=== PATIENT | female | born 1935 | race Caucasian/White ===

== ENCOUNTER → 2016-08-11 | Outpatient (CLI) | payer OTHER | LOC: BHLMT 13:00 | PROVIDERS: ATTEND Internal Medicine Cardiovascular Disease | DX: I48.91 Unspecified atrial fibrillation (principal); I48.92 Unspecified atrial flutter; I10 Essential (primary) hypertension; R07.9 Chest pain, unspecified; I47.1 Supraventricular tachycardia; I49.1 Atrial premature depolarization; R00.2 Palpitations; F41.9 Anxiety disorder, unspecified | CPT/HCPCS: 93005-PO ==

== ENCOUNTER → 2016-08-14 | Outpatient (CLI) | payer OTHER | LOC: FCPNEURO 20:00 | PROVIDERS: ATTEND Psychiatry & Neurology Sleep Medicine | DX: G47.33 Obstructive sleep apnea (adult) (pediatric) (principal); G47.61 Periodic limb movement disorder ==

== ENCOUNTER 2016-10-29 09:36 | Observation (INO) | payer OTHER ==
[2016-10-29] MEDS ORDERED: diphenhydrAMINE 25 MG CAP PO ONE ×2 (09:39→10:18)
[2016-10-29] MEDS ORDERED: BACITRACIN IRRIGATION/NS 50,000 UNITS/1,000 ML BTL IRR ONE (09:39)
[2016-10-29] MEDS ORDERED: ceFAZolin 2 GM/DEXTROSE 100 ML IV ONE (09:39)
[2016-10-29] MEDS ORDERED: DIAZEPAM 5 MG TAB PO ONE (09:39)
[2016-10-29] MEDS ORDERED: NS 1,000 ML IV ONE (09:39)
--- NOTE | 2016-10-29 10:00 | CPEKG ---
Heart Rate: 52 RR Interval: 1154 P-R Interval: 172 QRSD Interval: 84 QT Interval: 484 QTC Interval: 451 P [place]ul[place]: 43 QRS [place]ul[place]: -3 T Wave Yul[place]: 38 EKG Severity - NORMAL ECG - EKG Impression: SINUS RHYTHM Electronically Signed By: Nicolette Hicks 29-Oct-2016 10:07:41
[2016-10-29] MEDS ORDERED: DIAZEPAM 5 MG TAB ONE (10:18)
[2016-10-29 10:19] LABS: ADD DIFF? NO; ADD MORPH? NO; ADD SCAN? NO; ATYPICAL LYMPHOCYTE FLAG 0 (0-99); FRAGMENT RBC FLAG 0 (0-99); HEMATOCRIT 40.2 % (38.0-47.0); HEMOGLOBIN 13.8 g/dL (12.6-16.3); LEFT SHIFT FLG 0 (0-99); LIPEMIA HEMOLYSIS FLAG 90 (0-99); MEAN CELL HEMOGLOBIN 31.3 pg (27.9-34.1); MEAN CELL HEMOGLOBIN CONCENTR. 34.3 g/dL (32.4-36.7); MEAN CELL VOLUME 91.2 fL (81.5-99.8); MEAN PLATELET VOLUME 9.5 fL (8.7-11.7); PLATELET CLUMPS FLAG 20 (0-99); PLATELET COUNT 230 10^3/uL (150-400); RED BLOOD CELL COUNT 4.41 10^6/uL (4.18-5.33); RED CELL DISTRIBUTION WIDTH 12.6 % (11.5-15.2)
[2016-10-29] MEDS ORDERED: VANCOMYCIN HCL/NORMAL SALINE 250 ML IV ONE (10:30)
[2016-10-29 10:32] LABS: ANION GAP 10 mEq/L (8-16); CALCIUM 8.8 mg/dL (8.5-10.4); CARBON DIOXIDE 23 mEq/l (22-31); CHLORIDE 106 mEq/L (97-110); CREATININE 0.9 mg/dL (0.6-1.0); GLOMERULAR FILTRATION RATE > 60; GLUCOSE 100 mg/dL (70-100); POTASSIUM 4.5 mEq/L (3.5-5.2); SODIUM 139 mEq/L (134-144)
[2016-10-29 10:35] LABS: INR 0.92 (0.83-1.16); PROTIME(PATIENT) 12.3 SEC (12.0-15.0)
[2016-10-29] MEDS ORDERED: IOPAMIDOL (ISOVUE-370) 150 ML BTL IV ONE (13:05)
[2016-10-29] MEDS ORDERED: LIDOCAINE 1% 30 ML SDV ONE (13:05)
[2016-10-29] MEDS ORDERED: MIDAZOLAM 2 MG/2 ML VIAL ONE ×3 (13:05→13:41)
[2016-10-29] MEDS ORDERED: fentaNYL 100 MCG/2 ML INJ ONE ×2 (13:05→13:41)
[2016-10-29] MEDS ORDERED: LIDO/EPI 1% **for epidural** 30 ML SDV ONE (13:06)
[2016-10-29] MEDS ORDERED: BUPIVACAINE 0.5% 30 ML SDV ONE (13:06)
[2016-10-29] MEDS ORDERED: DICYCLOMINE 10 MG CAP PO PRN (14:30)
[2016-10-29] MEDS ORDERED: METOPROLOL TARTRATE 5 MG/5 ML INJ ONE (14:40)
--- NOTE | 2016-10-29 15:23 | CPEKG ---
Heart Rate: 64 RR Interval: 938 P-R Interval: 185 QRSD Interval: 84 QT Interval: 452 QTC Interval: 467 P Finger: 0 QRS Finger: -23 T Wave Finger: 13 EKG Severity - ABNORMAL ECG - EKG Impression: ATRIAL-PACED COMPLEXES EKG Impression: CONSIDER LEFT VENTRICULAR HYPERTROPHY EKG Impression: BORDERLINE PROLONGED QT INTERVAL Electronically Signed By: Nicolette Hicks 29-Oct-2016 15:44:08
[2016-10-29] MEDS: HYDROCODONE/APAP 5/325 TAB PO PRN ×2 (17:13→21:05)
[2016-10-29] MEDS ORDERED: LATANOPROST 0.005% 2.5 ML OPHT DROPS EACHEYE SCH (21:00)
[2016-10-29] MEDS: METOPROLOL SUCCINATE XR 50 MG TAB PO SCH (21:06)
--- NOTE | 2016-10-30 02:48 | CPIP ---
[f rep st] INVASIVE CARDIAC PROCEDURE DATE OF PROCEDURE: 10/29/2016 INDICATIONS: The patient is 81 years old. She has a history of paroxysmal atrial fibrillation, sic k sinus syndrome, and symptomatic bradycardia. She is referred for pacemaker implantation. PROCEDURE: Implantation of a dual-chamber pacemaker. TECHNIQUE: Following informed consent in the fasting state, the patient was brought to cardiac cath eterization laboratory. Immediately prior to the procedure, the patient was given 1 g of IV vancomy belen for prophylaxis. Left chest was prepped and draped in usual sterile fashion. 2% lidocaine was infiltrated in the skin below the left clavicle. Using a #10 blade, a 3 cm incision was made. Usin g blunt and sharp dissection, the pacemaker pocket was fashioned. Antibiotic-soaked sponge was plac ed in the pocket. Using modified Seldinger technique, the access was gained twice to the axillary v ein at the level of the 1st rib. Two individual 0.035 J-wires were then placed using a modified Francie kelly technique. Using both of these J-wires and 6-Kyrgyz sheaths, the atrial and ventricular lead s were individually placed, initially in the right ventricular apex and subsequently along the inter ventricular septum. The atrial lead was placed in the right atrial appendage. The leads were screw ed into place and secured in the pacemaker pocket floor. The leads were tested with adequate captur e and sensing thresholds. The antibiotic-soaked sponge was removed from the pocket. The pocket was irrigated with antibiotic-containing solution. The device was brought to the field, both leads iliana ntified by serial number, and affixed the head according to taxicab starter guidelines. The device and the redundant portions of both leads were then placed in the pocket. The pocket was closed in 3 la yers, initially with 2 layers of interrupted suture using 2-0 and 3-0 Vicryl, and finally a running 3-0 Stratafix for the skin. Steri-Strips and a dry dressing were applied. COMPLICATIONS: None. DEVICE INFORMATION: The pacemaker is a [employer] Assurity MRI compatible device, reference n [facility] [id number], serial number [id number]. The atrial lead is [employer] Tendril SDX, 2088TC/46 cm lead, serial number [id number]. Ventricular lead is [employer] Tendril SDX, 2088TC/52 cm lead, serial number [id number]. In the atrium, sensed P waves were 2.6 mV, capture of 0.5 V at 0.5 millis econds. Lead impedance 577 ohms. In the ventricle, sensed R waves of 7.7 mV, with a capture thresh old of 0.5 V at 0.5 milliseconds. Lead impedance of 1033 ohms. DISPOSITION: The patient will be recovered in the CVC. She will be admitted to telemetry and monit ored overnight, and discharged home tomorrow. /[id number]/MODL
[2016-10-30 05:00] LABS: % IMMATURE GRANULYOCYTES 0.2 % (0.0-1.1); ABSOLUTE IMMATURE GRANULOCYTES 0.01 10^3/uL (0.00-0.10); ADD DIFF? NO; ADD MORPH? NO; ADD SCAN? NO; ATYPICAL LYMPHOCYTE FLAG 10 (0-99); FRAGMENT RBC FLAG 0 (0-99); HEMOGLOBIN 13.3 g/dL (12.6-16.3); LEFT SHIFT FLG 0 (0-99); LIPEMIA HEMOLYSIS FLAG 90 (0-99); MEAN CELL HEMOGLOBIN 31.4 pg (27.9-34.1); MEAN CELL HEMOGLOBIN CONCENTR. 34.1 g/dL (32.4-36.7); MEAN PLATELET VOLUME 9.4 fL (8.7-11.7); PLATELET CLUMPS FLAG 10 (0-99); PLATELET COUNT 191 10^3/uL (150-400); RED BLOOD CELL COUNT 4.24 10^6/uL (4.18-5.33); RED CELL DISTRIBUTION WIDTH 12.5 % (11.5-15.2)
[2016-10-30 05:10] LABS: ANION GAP 5 mEq/L (8-16); CALCIUM 8.3 mg/dL (8.5-10.4); CARBON DIOXIDE 27 mEq/l (22-31); CHLORIDE 104 mEq/L (97-110); CREATININE 0.9 mg/dL (0.6-1.0); GLOMERULAR FILTRATION RATE > 60; GLUCOSE 86 mg/dL (70-100); POTASSIUM 4.7 mEq/L (3.5-5.2); SODIUM 136 mEq/L (134-144)
[2016-10-30] MEDS: METOPROLOL SUCCINATE XR 50 MG TAB PO SCH (08:26)
[2016-10-30] MEDS ORDERED: CITALOPRAM 20 MG TAB PO SCH (09:00)
--- NOTE | 2016-10-30 09:01 | CPEKG ---
Heart Rate: 60 RR Interval: 1000 P-R Interval: 218 QRSD Interval: 82 QT Interval: 436 QTC Interval: 436 P [place]: -6 QRS [place]: -2 T Wave [place]: 33 EKG Severity - ABNORMAL ECG - EKG Impression: ATRIAL-PACED COMPLEXES Electronically Signed By: Nicolette Hicks 30-Oct-2016 12:07:05
[2016-10-30] MEDS: HYDROCODONE/APAP 5/325 TAB PO PRN ×2 (09:02→13:41)
[2016-10-30 12:17] VITALS: BP 145/71; PULSE 60; RESP 19; TEMP 98.1; O2SAT 93
--- NOTE | 2016-10-30 18:49 | GDS ---
[f rep st] DISCHARGE SUMMARY ADMISSION DIAGNOSES: 1. Sick sinus syndrome. 2. Paroxysmal atrial fibrillation. 3. Hyperlipidemia. 4. Hypertension. 5. Anxiety disorder. DISCHARGE DIAGNOSES: 1. Sick sinus syndrome. 2. Status post permanent pacemaker implantation with atrial and ventricular leads, [employer]. 3. Hypertension. 4. Paroxysmal atrial fibrillation. 5. Hyperlipidemia. 6. Anxiety disorder. PROCEDURES DONE DURING HOSPITALIZATION: 1. Electrocardiogram. 2. Dual-chamber pacemaker implantation with right atrial and right ventricular lead implantations d one by Dr. Holman; device [employer] and leads [employer]. 3. Chest x-ray. BRIEF HISTORY: Please see H and P. The patient is an 81-year-old female with significant past hist ory of PAF, sick sinus syndrome, hypertension, and palpitations. She has recently undergone telemet ry monitoring showing presence of paroxysmal atrial fibrillation. She was also noted to have sick s inus syndrome. She had seen Dr. Holman who evaluated, and determined that pacemaker implantation wou ld help with her sick sinus syndrome, and when she was in paroxysmal atrial fibrillation, she could have more medications applied to her medication regimen. Patient was admitted to the CVC, prepped f or procedure, and taken to the cardiac catheterization lab. There, Dr. Holman successfully implanted a dual-chamber [employer] pacemaker with right atrial and right ventricular leads. No complications. She was taken back to CVC and ultimately to the PCU for overnight observation. Patient reports no chest pain, shortness of breath, lightheadedness, near-syncope or syncopal events throughout the evening. She denies any orthopnea or PND. On continuous library monitor, she has b een sinus rhythm, occasional atrial=paced beat; noted 1 run which appears to be atrial fibrillation with aberrancy (reviewed with Dr. Shields). She was asymptomatic at that time. PHYSICAL EXAMINATION: (Done today) GENERAL APPEARANCE: Medium built, well-groomed female. She is alert and oriented to pers on, place, time, and situation and appears to be under no acute distress. VITAL SIGNS: Current blo od pressure 145/71, heart rate 60 beats per minute in sinus rhythm on the monitor, respirations 19, saturating 93% on room air, and temperature of 36.7 degrees Celsius. HEENT: Head is normocephalic. Lips and tongue are pink and moist with no signs of cyanosis. Conjunctivae pink. NECK: Trachea is midline, +2 carotid pulses bilateral. No auscultated bruits. No jugular vein distention. RESPI RATORY: Lungs clear to auscultation. No rhonchi, rales, or wheezes. No accessory muscle use. No intercostal muscle retraction. CARDIAC: Regular rate, regular rhythm. S1, S2. 1/6 to 2/6 systoli c murmur noted along the left sternal border. ABDOMEN: Soft, nontender. Bowel sounds x4 quadrants . No organomegaly. I feel no palpable masses. SKIN: [place], warm, and dry. No cyanosis and no clu bbing. Trace pedal edema. Pacemaker insertion site, left anterior chest, incision intact with Ster i-Strips. Dressing change done at this time; no redness, swelling, drainage, ecchymosis, or hematom a. NEURO: Cranial nerves 2-12 grossly intact. LABORATORY STUDIES: (Drawn today) WBC of 5.21, hemoglobin of 13.3, hematocrit of 39.0, platelet cou nt 191. Sodium 136, potassium 4.7, chloride 104, CO2 27, BUN 14, creatinine 0.9, glucose 86, calciu m 8.3 magnesium 2.2. STUDIES: This morning's electrocardiogram shows atrial paced with intrinsic ventricular rhythm, lef tward axis, poor R-wave progression in anterior leads. No significant ST or T-wave abnormalities. A.M. device check done by [employer] surgical device sales representative showing device functioning within normal limits. Chest x-ray done this morning showing no acute cardiopulmonary process and no delayed pneumothorax. Pacemaker implantation as mentioned above. DISCHARGE DISPOSITION: Patient will be discharged home in fair condition. She is under activity re strictions of not lifting more than 10 pounds for the next 6 weeks with the left arm and not raising the left arm higher than shoulder height. She will use a shoulder immobilizer for the next 2 days and p.r.n. for the next 6 weeks. DISCHARGE MEDICATIONS: Please see discharge medication reconciliation sheet. Note that Dr. River norton increased her metoprolol succinate to 50 mg p.o. b.i.d. she is also to restart her Eliquis tomor row morning. DISCHARGE INSTRUCTIONS: Post pacemaker discharge instructions gone over with the patient and her hilda doty and they both verbalized understanding; including monitoring for signs of infection, activity restrictions, bathing precautions, and medication compliancy. Patient is scheduled for a device ch adelina early next week and follow up with Dr. Holman in the next 2 weeks. At the time of discharge carmelo ent and daughter both verbalized understanding of instructions and have no further questions. They have been told that if there are any problems or concerns post discharge, they are to call our offic e or return to the hospital. TOTAL TIME SPENT ON DISCHARGE: Greater than 30 minutes. /[id number]/MODL
== END 2016-10-30 13:44 | disposition home or self-care (01) ==
LOC: FCATH 09:36 → F2W 15:08
PROVIDERS: ADMIT Internal Medicine Cardiovascular Disease; ATTEND Internal Medicine Cardiovascular Disease
DX: I49.5 Sick sinus syndrome (principal); I48.0 Paroxysmal atrial fibrillation; E78.2 Mixed hyperlipidemia; I10 Essential (primary) hypertension; F41.9 Anxiety disorder, unspecified; K21.9 Gastro-esophageal reflux disease without esophagitis; F32.9 Major depressive disorder, single episode, unspecified; Z88.0 Allergy status to penicillin; Z82.49 Family history of ischemic heart disease and other diseases of the circulatory system
CPT/HCPCS: 33208; 71010; 71020; 93005; C1785; C1898; J1644; J2250; J3010; J3370; Q9967

== ENCOUNTER → 2016-12-15 | Outpatient (CLI) | payer OTHER | LOC: BHLMT 09:00 | PROVIDERS: ATTEND Internal Medicine Cardiovascular Disease | DX: E78.2 Mixed hyperlipidemia (principal); I48.0 Paroxysmal atrial fibrillation; I49.5 Sick sinus syndrome; Z95.0 Presence of cardiac pacemaker | CPT/HCPCS: 93005-PO ==

== ENCOUNTER → 2017-08-18 | Outpatient (CLI) | payer OTHER | LOC: BMCIMAGING 10:20 | PROVIDERS: ATTEND Physician Assistant Medical | DX: R05 Cough (principal); J98.4 Other disorders of lung ==